=== PATIENT | female | born 1955 | race Caucasian/White ===

== ENCOUNTER 2023-02-02 09:00 | Outpatient (OUT) | payer MEDICARE, OTHER, SELFPAY ==
--- NOTE | 2023-02-02 09:32 | MM_ITS ---
Patient: YONATHAN TSAI Exam Date: 02/02/2023 : 1955 Gender:F Ordering : LUCAS WASHINGTON [employer] Admission #: [id number] Family : Order #: [id number] CLICK HERE TO VIEW EXAM RADIOLOGY REPORT PROCEDURE: MM TOMOSYNTHESIS SCREENING BI COMPARISON: MG MAMM SCREEN [facility] W CAD, 11/19/2013. MG MAMM SCREEN [facility] CAD, 02/04/2015. INDICATIONS: Screening mammogram Z12.31 Calculator Name NCI Breast Cancer Risk Assessment Tool 5 Year Breast Cancer Risk 1.20% Lifetime Breast Cancer Risk 3.90% Personal Breast Cancer No Personal Ovarian Cancer No Treatments None Family Cancers Grandfather-paternal with pancreatic cancer at age 65. LOCATION: [facility] BREAST COMPOSITION: Scattered areas fibroglandular density. FINDINGS: DIAGNOSTIC CATEGORY 1--NEGATIVE. NO CHANGE FROM COMPARISON ASSESSMENT. Scattered benign-appearing lymph nodes are present. RIGHT BREAST: No significant suspicious finding. LEFT BREAST: No significant suspicious finding. RECOMMENDATIONS: ROUTINE MAMMOGRAM AND CLINICAL EVALUATION IN 12 MONTHS. PLEASE NOTE: A NORMAL MAMMOGRAM DOES NOT EXCLUDE THE POSSIBILITY OF BREAST CANCER. A CLINICALLY SUSPICIOUS PALPABLE LUMP SHOULD BE BIOPSIED. Dictated by: Santosh Hernandez MD on 02/03/2023 at 07:13 Approved by: Santosh Hernandez MD on 02/03/2023 at 07:18
== END 2023-02-02 09:01 ==
PROVIDERS: PCP Nurse Practitioner Family; Visit Provider Nurse Practitioner Family
DX: Z12.31 Encounter for screening mammogram for malignant neoplasm of breast (principal); Z80.0 Family history of malignant neoplasm of digestive organs
CPT/HCPCS: 77063; 77067

== ENCOUNTER 2023-08-10 08:10 | Outpatient (OUT) | payer MEDICARE, OTHER, SELFPAY ==
[2023-08-10 08:40] LABS: Basophils Absolute Auto 0.1 10^3/uL (0.0-0.1); Basophils Percent Auto 0.7 % (0.2-2.0); Eosinophils Absolute Auto 0.3 10^3/uL (0.0-0.7); Hematocrit 44.2 % (36.0-48.0); Hemoglobin 14.8 g/dL (12.0-16.0); Immature Granulocytes Abs Auto 0.02 10^3/uL (0.00-0.03); Immature Granulocytes Pct Auto 0.3 % (0.0-0.5); Lymphocytes Absolute Auto 3.3 10^3/uL (1.2-3.8); Lymphocytes Percent Auto 43.1 % (20.5-60.0); Mean Corpuscular HGB Conc 33.5 g/dL (29.9-35.2); Mean Corpuscular Hemoglobin 28.8 pg (26.7-34.0); Mean Corpuscular Volume 86.2 fL (81.0-99.0); Monocytes Absolute Auto 0.6 10^3/uL (0.3-0.8); Monocytes Percent Auto 8.5 % (1.7-12.0); Neutrophils Absolute Auto 3.3 10^3/uL (1.4-6.5); Neutrophils Percent Auto 43.4 % (43.0-75.0); Platelet Count 427 10^3/uL (150-450); Red Blood Count 5.13 10^6/uL (4.20-5.40); Red Cell Distribution Width 13.2 % (11.0-15.0); White Blood Count 7.6 10^3/uL (4.0-11.0)
[2023-08-10 08:44] LABS: Estimated Average Glucose 117 mg/dL; Glycohemoglobin A1C 5.7 % (4.5-6.2)
[2023-08-10 09:01] LABS: Alanine Aminotransferase 33 U/L (14-59); Albumin Level 3.6 g/dL (3.4-5.0); Alkaline Phosphatase 125 U/L (46-116); Anion Gap 10.8; Aspartate Amino Transferase 20 U/L (15-37); BUN Creatinine Ratio 17.8; Bilirubin Total 0.5 mg/dL (0.2-1.0); Calcium 9.1 mg/dL (8.5-10.1); Carbon Dioxide 30.7 mmol/L (21.0-32.0); Chloride 102 mmol/L (98-107); Chol HDL Ratio 5.2; Cholesterol 267 mg/dL (<=200); Estimated GFR (African America >60 (>=60); Estimated GFR (Non-African Ame >60 (>=60); Free T3 2.61 pg/mL (2.18-3.98); Globulin 3.6 g/dL; Glucose 104 mg/dL (74-106); HDL Cholesterol 51 mg/dL (40-60); Potassium 3.5 mmol/L (3.5-5.1); Sodium 140 mmol/L (136-145); Thyroid Stimulating Hormone 4.435 uIU/mL (0.358-3.740); Total Protein 7.2 g/dL (6.4-8.2); Triglycerides 125 mg/dL (<=150)
[2023-08-11 09:07] LABS: Insulin 13.7 uIU/mL (2.6-24.9)
== END 2023-08-10 08:11 | disposition home or self-care (01) ==
LOC: LAB 08:10
PROVIDERS: PCP Nurse Practitioner Family; Visit Provider Nurse Practitioner Family
DX: E78.5 Hyperlipidemia, unspecified (principal); I10 Essential (primary) hypertension; R73.09 Other abnormal glucose; D64.9 Anemia, unspecified; E55.9 Vitamin D deficiency, unspecified
CPT/HCPCS: 36415; 80053; 80061; 82306; 83036; 83525; 83540; 84436; 84443; 84481; 85025

== ENCOUNTER 2023-12-20 08:15 | Outpatient (OUT) | payer MEDICARE, OTHER, SELFPAY ==
--- OUTSIDE RECORDS SUMMARY | 2023-12-20 08:26 | XMS_ITS | CCD ---
Author Organization [facility] Care Team Providers Care Supervisor [employer] Name Role Phone LUCAS WASHINGTON Admitting Unavailable LUCAS WASHINGTON Attending Unavailable LUCAS WASHINGTON Primary Care Unavailable LUCAS WASHINGTON Consulting Unavailable Results Test Name Value Interpretation Reference Range Facil ity INSULINon 08-13-2022 Insulin 15.3 uIU/mL Normal 2.6-24.9 [facility] Comment on above: Performed By: #### I NSULIN #### [facility] [address] [place] [address] Dr. Marilyn Barlow CBC AUTO DIFFon 08-12-2022 BASO # 0.0 103/ul Normal 0.0-0.1 [facility] Comment on above: Performed By: #### C BC #### [facility] [address] [place] [address] Dr. Marilyn Barlow Basophils/100 WBC (Bld) 0.7 % Normal 0.2-2.0 [facility] Comment on above: Performed By: #### C BC #### [facility] [address] [place] [address] Dr. Marilyn Barlow EO # 0.4 103/ul Normal 0.0-0.7 [facility] Comment on above: Performed By: #### C BC #### [facility] [address] [place] [address] Dr. Marilyn Barlow Eosinophils/100 WBC (Bld) 6.5 % Normal 0.9-7.0 [facility] Comment on above: Performed By: #### C BC #### [facility] [address] [place] [address] Dr. Marilyn Barlow Erythrocyte distribution width (RBC) [Ratio] 13.2 % Normal 11.0-15.0 [facility] Comment on above: Performed By: #### C BC #### [facility] [address] [place] [address] Dr. Marilyn Barlow Hematocrit (Bld) [Volume fraction] 43.3 % Normal 36.0-48.0 [facility] Comment on above: Performed By: #### C BC #### [facility] [address] [place] [address] Dr. Marilyn Barlow Hemoglobin (Bld) [Mass/Vol] 15.3 g/dL Normal 12.0-16.0 [facility] Comment on above: Performed By: #### C BC #### [facility] [address] [place] [address] Dr. Marilyn Barlow IG # 0.01 10e3/ul Normal 0.00-0.03 [facility] Comment on above: Performed By: #### C BC #### [facility] [address] [place] [address] Dr. Marilyn Barlow IG % 0.2 % Normal 0.0-0.5 [facility] Comment on above: Performed By: #### C BC #### [facility] [address] [place] [address] Dr. Marilyn Barlow LYMPH # 2.9 103/ul Normal 1.2-3.8 [facility] Comment on above: Performed By: #### C BC #### [facility] [address] [place] [address] Dr. Marilyn Barlow Lymphocytes/100 WBC (Bld) 51.4 % Normal 20.5-60.0 [facility] Comment on above: Performed By: #### C BC #### [facility] [address] [place] [address] Dr. Marilyn Barlow MANUAL DIFF REQ NO Normal [facility] Comment on above: Performed By: #### C BC #### [facility] [address] [place] [address] Dr. Marilyn Barlow MCH (RBC) [Entitic mass] 29.1 pg Normal 26.7-34.0 [facility] Comment on above: Performed By: #### C BC #### [facility] [address] [address] [address] Marilyn Barlow MCHC (RBC) [Mass/Vol] 35.3 g/dL Critically high 29.9-35.2 [facility] Comment on above: Performed By: #### C BC #### [facility] [address] [address] [address] Marilyn Barlow MCV (RBC) [Entitic vol] 82.3 fL Normal 81.0-99.0 [facility] Comment on above: Performed By: #### C BC #### [facility] [address] [address] [address] Marilyn Barlow MONO # 0.6 103/ul Normal 0.3-0.8 [facility] Comment on above: Performed By: #### C BC #### [facility] [address] [place] [address] Dr. Marilyn Barlow Monocytes/100 WBC (Bld) 9.8 % Normal 1.7-12.0 [facility] Comment on above: Performed By: #### C BC #### [facility] [address] [address] [address] Marilyn Barlow NEUT # 1.8 103/ul Normal 1.4-6.5 [facility] Comment on above: Performed By: #### C BC #### [facility] [address] [place] [address] Dr. Marilyn Barlow Neutrophils/100 WBC (Bld) 31.4 % Critically low 43.0-75.0 [facility] Comment on above: Performed By: #### C BC #### [facility] [address] [place] [address] Dr. Marilyn Barlow Platelet mean volume (Bld) [Entitic vol] 8.7 fL Critically low 9.5-13.5 [facility] Comment on above: Performed By: #### C BC #### [facility] [address] [place] [address] Dr. Marilyn Barlow PLT 383 103/ul Normal 150-450 [facility] Comment on above: Performed By: #### C BC #### [facility] [address] [place] [address] Dr. Marilyn Barlow RBC 5.26 106/ul Normal 4.20-5.40 [facility] Comment on above: Performed By: #### C BC #### [facility] [address] [address] [address] Marilyn Barlow WBC 5.7 103/ul Normal 4.0-11.0 [facility] Comment on above: Performed By: #### C BC #### [facility] [address] [place] [address] Dr. Marilyn Barlow FREE THYROXINE INDEX T7on FTI 3.47 Normal 1.30-4.50 [facility] Comment on above: Performed By: #### C MP, T7, LIPID, TSH #### [facility] [address] [place] [address] Dr. Marilyn Barlow T3U 34.0 % Normal 30.0-39.0 [facility] Comment on above: Performed By: #### C MP, T7, LIPID, TSH #### [facility] [address] [place] [address] Dr. Marilyn Barlow T4 [Mass/Vol] 10.20 ug/dL Normal 4.80-13.90 [facility] Comment on above: Performed By: #### C MP, T7, LIPID, TSH #### [facility] [address] [place] [address] Dr. Marilyn Barlow GLYCOHEMOGLOBIN A1Con 2021 ADA RECOMMENDATION SEE BELOW Normal [facility] Comment on above: Result Comment: ADA RECOMMENDED LIMIT 4.0 - 6.0 ADA THERAPEUTIC TARGET < 7.0 ACTION SUGGESTED > 7.0 Performed By: #### A 1C #### [facility] [address] [place] [address] Dr. Marilyn Barlow Glucose [Mass/Vol] 111 mg/dL Normal [facility] Comment on above: Performed By: #### A 1C #### [facility] [address] [place] [address] Dr. Marilyn Barlow HbA1c (Bld) [Mass fraction] 5.5 % Normal 4.5-6.2 [facility] Comment on above: Performed By: #### A 1C #### [facility] [address] [place] [address] Dr. Marilyn Barlow IRONon 08-12-2022 Iron [Mass/Vol] 86.0 ug/dL Normal 50.0-170.0 [facility] Comment on above: Performed By: #### I DIYA #### [facility] [address] [place] [address] Dr. Marilyn Barlow LIPID PROFILEon 08-12-2022 CHOL-HDL RATIO NORM SEE BELOW Normal [facility] Comment on above: Result Comment: 3.3 - 4.4 LOW RISK 4.4 - 7.1 AVERAGE RISK 7.1 - 11.0 MODERATE RISK >11.0 HIGH RISK Performed By: #### C MP, T7, LIPID, TSH #### [facility] [address] [place] [address] Dr. Marilyn Barlow Cholesterol [Mass/Vol] 200 mg/dL Normal <=200 [facility] Comment on above: Performed By: #### C MP, T7, LIPID, TSH #### [facility] [address] [address] [address] Marilyn Barlow Cholesterol in HDL [Mass/Vol] 34 mg/dL Critically low 40-60 [facility] Comment on above: Performed By: #### C MP, T7, LIPID, TSH #### [facility] [address] [address] [address] Marilyn Barlow Cholesterol in LDL [Mass/Vol] 150.4 mg/dL Normal [facility] Comment on above: Performed By: #### C MP, T7, LIPID, TSH #### [facility] [address] [address] [address] Marilyn Barlow Cholesterol.total/Cho lesterol in HDL [Mass ratio] 5.9 {ratio} Normal [facility] Comment on above: Performed By: #### C MP, T7, LIPID, TSH #### [facility] [address] [address] [address] Marilyn Barlow HDL NORMAL > or = 60 mg/dl - LOW CARDIOVASCULAR RISK <40 mg/dl - HIGH CARDIOVASCULAR RISK Normal [facility] Comment on above: Performed By: #### C MP, T7, LIPID, TSH #### [facility] [address] [address] [address] Marilyn Barlow LDL CALC NORMAL SEE BELOW Normal [facility] Comment on above: Result Comment: <100 mg/dl OPTIMAL 100 - 129 mg/dl NEAR OR ABOVE OPTIMAL 130 - 159 mg/dl BORDERLINE HIGH 160 - 189 mg/dl HIGH >190 mg/dl VERY HIGH Performed By: #### C MP, T7, LIPID, TSH #### [facility] [address] [address] [address] Marilyn Barlow Triglyceride [Mass/Vol] 78 mg/dL Normal <=150 [facility] Comment on above: Performed By: #### C MP, T7, LIPID, TSH #### [facility] [address] [address] [address] Marilyn Barlow VLDL CALC 15.6 mg/dL Normal [facility] Comment on above: Performed By: #### C MP, T7, LIPID, TSH #### [facility] [address] [address] [address] Marilyn Barlow PROF 14(COMP METB)on 022 Albumin [Mass/Vol] 3.8 g/dL Normal 3.4-5.0 [facility] Comment on above: Performed By: #### C MP, T7, LIPID, TSH #### [facility] [address] [address] [address] Marilyn Barlow Albumin/Globulin [Mass ratio] 1.0 {ratio} Normal [facility] Comment on above: Performed By: #### C MP, T7, LIPID, TSH #### [facility] [address] [address] [address] Marilyn Barlow ALP [Catalytic activity/Vol] 98 U/L Normal 46-116 [facility] Comment on above: Performed By: #### C MP, T7, LIPID, TSH #### [facility] [address] [address] [address] Marilyn Barlow ALT [Catalytic activity/Vol] 23 U/L Normal 14-59 [facility] Comment on above: Performed By: #### C MP, T7, LIPID, TSH #### [facility] [address] [address] [address] Marilyn Barlow Anion gap [Moles/Vol] 12.0 mmol/L Normal [facility] Comment on above: Performed By: #### C MP, T7, LIPID, TSH #### [facility] [address] [address] [address] Marilyn Barlow AST [Catalytic activity/Vol] 28 U/L Normal 15-37 [facility] Comment on above: Performed By: #### C MP, T7, LIPID, TSH #### [facility] [address] [address] [address] Marilyn Barlow Bilirubin [Mass/Vol] 0.6 mg/dL Normal 0.2-1.0 [facility] Comment on above: Performed By: #### C MP, T7, LIPID, TSH #### [facility] [address] [place] [address] Dr. Marilyn Barlow Calcium [Mass/Vol] 9.1 mg/dL Normal 8.5-10.1 [facility] Comment on above: Performed By: #### C MP, T7, LIPID, TSH #### [facility] [address] [place] [address] Dr. Marilyn Barlow Chloride [Moles/Vol] 97 mmol/L Critically low 98-107 [facility] Comment on above: Performed By: #### C MP, T7, LIPID, TSH #### [facility] [address] [place] [address] Dr. Marilyn Barlow CO2 [Moles/Vol] 30.3 mmol/L Normal 21.0-32.0 [facility] Comment on above: Performed By: #### C MP, T7, LIPID, TSH #### [facility] [address] [place] [address] Dr. Marilyn Barlow Creatinine [Mass/Vol] 0.90 mg/dL Normal 0.55-1.02 [facility] Comment on above: Performed By: #### C MP, T7, LIPID, TSH #### [facility] [address] [address] [address] Marilyn Barlow EGFR-AF GREENLANDIC >60 Normal >=60 [facility] Comment on above: Performed By: #### C MP, T7, LIPID, TSH #### [facility] [address] [address] [address] Marilyn Barlow EGFR-NON AF GREENLANDIC >60 Normal >=60 [facility] Comment on above: Performed By: #### C MP, T7, LIPID, TSH #### [facility] [address] [address] [address] Marilyn Barlow Globulin (S) [Mass/Vol] 3.8 g/dL Normal [facility] Comment on above: Performed By: #### C MP, T7, LIPID, TSH #### [facility] [address] [place] [address] Dr. Marilyn Barlow Glucose [Mass/Vol] 108 mg/dL Critically high 74-106 [facility] Comment on above: Performed By: #### C MP, T7, LIPID, TSH #### [facility] [address] [address] [address] Marilyn Barlow Potassium [Moles/Vol] 3.3 mmol/L Critically low 3.5-5.1 [facility] Comment on above: Performed By: #### C MP, T7, LIPID, TSH #### [facility] [address] [address] [address] Marilyn Barlow Protein [Mass/Vol] 7.6 g/dL Normal 6.4-8.2 [facility] Comment on above: Performed By: #### C MP, T7, LIPID, TSH #### [facility] [address] [address] [address] Marilyn Barlow Sodium [Moles/Vol] 136 mmol/L Normal 136-145 [facility] Comment on above: Performed By: #### C MP, T7, LIPID, TSH #### [facility] [address] [address] [address] Marilyn Barlow Urea nitrogen [Mass/Vol] 15.0 mg/dL Normal 7.0-18.0 [facility] Comment on above: Performed By: #### C MP, T7, LIPID, TSH #### [facility] [address] [address] [address] Marilyn Barlow Urea nitrogen/Creatinine [Mass ratio] 16.7 mg/mg Normal [facility] Comment on above: Performed By: #### C MP, T7, LIPID, TSH #### [facility] [id number] Marilyn Barlow TSHon 08-12-2022 TSH 2.313 uIU/mL Normal 0.358-3.740 [facility] Comment on above: Performed By: #### C MP, T7, LIPID, TSH #### [facility] [address] [address] [address] Marilyn Barlow Encounters Encounter Date Encounter Type Care Provider Facility Start: 08-12-2022 End: 08-13-2022 [facility] Facility: Payers Date Payer Category Payer Medicare [id number] 1960 Unknown [id number] 1955 Unknown [id number] Summary Purpose Family History No Family History Records Found Advance Directives No Advanced Directives Records Found Additional Source Comments INFORMATION SOURCE (unrecogn ized section and content) DATE CREATED AUTHOR 08/13/2022 [facility] FOR RECORDS PERTAINING TO PATIENTS WHO ARE OR HAVE BEEN ENROLLED IN A CHEMICAL DEPENDENCY/SUBSTANCEABUSE PROGRAM, SOME INFORMATION MAY BE OMITTED. This clinical summary was aggregated from multiple sources. Caution should be exercised in using it in the provision of clinical care. This summary normalizes information from multiple sources, and as a consequence, information in this document may materially change the coding, format and clinical context of patient data. In addition, data may be omitted in some cases. CLINICAL DECISIONS SHOULD BE BASED ON THE PRIMARY CLINICAL RECORDS. [facility]. provides no warranty or guarantee of the accuracy or completeness of information in this document.
[2023-12-20 09:38] LABS: Alanine Aminotransferase 27 U/L (14-59); Albumin Globulin Ratio 1.1; Albumin Level 3.7 g/dL (3.4-5.0); Alkaline Phosphatase 135 U/L (46-116); Anion Gap 10.7; Aspartate Amino Transferase 19 U/L (15-37); Bilirubin Total 0.5 mg/dL (0.2-1.0); Calcium 9.1 mg/dL (8.5-10.1); Carbon Dioxide 29.7 mmol/L (21.0-32.0); Chloride 102 mmol/L (98-107); Chol HDL Ratio 6.3; Cholesterol 282 mg/dL (<=200); Estimated GFR (African America >60 (>=60); Estimated GFR (Non-African Ame >60 (>=60); Globulin 3.5 g/dL; Glucose 94 mg/dL (74-106); HDL Cholesterol 45 mg/dL (40-60); Potassium 3.4 mmol/L (3.5-5.1); Sodium 139 mmol/L (136-145); Total Protein 7.2 g/dL (6.4-8.2); Triglycerides 119 mg/dL (<=150); VLDL CHOLESTEROL 23.8 mg/dL
[2023-12-20 10:18] LABS: BUN Creatinine Ratio 21.3
== END 2023-12-20 08:16 | disposition home or self-care (01) ==
LOC: LAB 08:15
PROVIDERS: PCP Nurse Practitioner Family; Visit Provider Nurse Practitioner Family
DX: R79.9 Abnormal finding of blood chemistry, unspecified (principal); E78.5 Hyperlipidemia, unspecified
CPT/HCPCS: 36415; 80053; 80061

== ENCOUNTER 2024-02-05 09:52 | Outpatient (OUT) | payer MEDICARE, OTHER, SELFPAY ==
--- NOTE | 2024-02-05 10:00 | MM_ITS ---
Patient Name: YONATHAN TSAI MR#: [id number] : 1955 Exam Date: 02/05/2024 Ordering Doctor: LUCAS WASHINGTON CNP RADIOLOGY REPORT PROCEDURE: MM TOMOSYNTHESIS SCREENING BI COMPARISON: MM TOMOSYNTHESIS SCREENING BI, 02/02/2023. MG MAMM SCREEN [place] W CAD, 02/04/2015. INDICATIONS: Screen for malignant Neoplasms Calculator Name NCI Breast Cancer Risk Assessment Tool 5 Year Breast Cancer Risk 1.20% Lifetime Breast Cancer Risk 3.70% Personal Breast Cancer No Personal Ovarian Cancer No Treatments None Family Cancers Grandfather-paternal with pancreatic cancer at age 65. LOCATION: [facility] BREAST COMPOSITION: There are scattered areas of fibroglandular density. FINDINGS: DIAGNOSTIC CATEGORY 1--NEGATIVE. NO CHANGE FROM COMPARISON ASSESSMENT. Scattered benign-appearing lymph nodes are present. Scattered benign-appearing calcifications are present. RIGHT BREAST: No significant suspicious finding. LEFT BREAST: No significant suspicious finding. RECOMMENDATIONS: ROUTINE MAMMOGRAM AND CLINICAL EVALUATION IN 12 MONTHS. PLEASE NOTE: A NORMAL MAMMOGRAM DOES NOT EXCLUDE THE POSSIBILITY OF BREAST CANCER. A CLINICALLY SUSPICIOUS PALPABLE LUMP SHOULD BE BIOPSIED. Dictated by: Santosh Hernandez MD on 02/05/2024 at 11:37 Approved by: Santosh Hernandez MD on 02/05/2024 at 11:38
--- OUTSIDE RECORDS SUMMARY | 2024-02-05 10:09 | XMS_ITS | CCD ---
Author Organization [facility] Inform ion Partnership [facility] Care Team Providers Care Heel Finisher Name Role Phone LUCAS WASHINGTON Admitting Unavailable LUCAS WASHINGTON Attending Unavailable LUCAS WASHINGTON Primary Care Unavailable LUCAS WASHINGTON Consulting Unavailable Results Test Name Value Interpretation Reference Range Facil ity INSULINon 08-13-2022 Insulin 15.3 uIU/mL Normal 2.6-24.9 [facility] Comment on above: Performed By: #### I NSULIN #### [facility] [address] [place] [address] Dr. Marilyn Barlow CBC AUTO DIFFon 08-12-2022 BASO # 0.0 103/ul Normal 0.0-0.1 [facility] Comment on above: Performed By: #### C BC #### [facility] [address] [place] [address] Dr. Marilyn Barlow Basophils/100 WBC (Bld) 0.7 % Normal 0.2-2.0 [facility] Comment on above: Performed By: #### C BC #### [facility] [address] [place] [address] Dr. Marilyn Barlow EO # 0.4 103/ul Normal 0.0-0.7 [facility] Comment on above: Performed By: #### C BC #### [facility] [address] [place] [address] Dr. Marilyn Barlow Eosinophils/100 WBC (Bld) 6.5 % Normal 0.9-7.0 [facility] Comment on above: Performed By: #### C BC #### [facility] [address] [place] [address] Dr. Marilyn Barlow Erythrocyte distribution width (RBC) [Ratio] 13.2 % Normal 11.0-15.0 [facility] Comment on above: Performed By: #### C BC #### [facility] [address] [place] [address] Dr. Marilyn Barlow Hematocrit (Bld) [Volume fraction] 43.3 % Normal 36.0-48.0 [facility] Comment on above: Performed By: #### C BC #### [facility] [address] [place] [address] Dr. Marilyn Barlow Hemoglobin (Bld) [Mass/Vol] 15.3 g/dL Normal 12.0-16.0 [facility] Comment on above: Performed By: #### C BC #### [facility] [address] [place] [address] Dr. Marilyn Barlow IG # 0.01 10e3/ul Normal 0.00-0.03 [facility] Comment on above: Performed By: #### C BC #### [facility] [address] [place] [address] Dr. Marilyn Barlow IG % 0.2 % Normal 0.0-0.5 [facility] Comment on above: Performed By: #### C BC #### [facility] [address] [place] [address] Dr. Marilyn Barlow LYMPH # 2.9 103/ul Normal 1.2-3.8 [facility] Comment on above: Performed By: #### C BC #### [facility] [address] [place] [address] Dr. Marilyn Barlow Lymphocytes/100 WBC (Bld) 51.4 % Normal 20.5-60.0 [facility] Comment on above: Performed By: #### C BC #### [facility] [address] [place] [address] Dr. Marilyn Barlow MANUAL DIFF REQ NO Normal [facility] Comment on above: Performed By: #### C BC #### [facility] [address] [place] [address] Dr. Marilyn Barlow MCH (RBC) [Entitic mass] 29.1 pg Normal 26.7-34.0 [facility] Comment on above: Performed By: #### C BC #### [facility] [address] [address] [address] Marilyn Barlow MCHC (RBC) [Mass/Vol] 35.3 g/dL Critically high 29.9-35.2 [facility] Comment on above: Performed By: #### C BC #### [facility] [address] [address] [address] Marilyn Barlow MCV (RBC) [Entitic vol] 82.3 fL Normal 81.0-99.0 [facility] Comment on above: Performed By: #### C BC #### [facility] [address] [address] [address] Marilyn Barlow MONO # 0.6 103/ul Normal 0.3-0.8 [facility] Comment on above: Performed By: #### C BC #### [facility] [address] [address] [address] Marilyn Barlow Monocytes/100 WBC (Bld) 9.8 % Normal 1.7-12.0 [facility] Comment on above: Performed By: #### C BC #### [facility] [address] [address] [address] Marilyn Barlow NEUT # 1.8 103/ul Normal 1.4-6.5 [facility] Comment on above: Performed By: #### C BC #### [facility] [address] [address] [address] Marilyn Barlow Neutrophils/100 WBC (Bld) 31.4 % Critically low 43.0-75.0 [facility] Comment on above: Performed By: #### C BC #### [facility] [address] [address] [address] Marilyn Barlow Platelet mean volume (Bld) [Entitic vol] 8.7 fL Critically low 9.5-13.5 [facility] Comment on above: Performed By: #### C BC #### [facility] [address] [address] [address] Marilyn Barlow PLT 383 103/ul Normal 150-450 [facility] Comment on above: Performed By: #### C BC #### [facility] [address] [address] [address] Marilyn Barlow RBC 5.26 106/ul Normal 4.20-5.40 [facility] Comment on above: Performed By: #### C BC #### [facility] [address] [address] [address] Marilyn Barlow WBC 5.7 103/ul Normal 4.0-11.0 [facility] Comment on above: Performed By: #### C BC #### [facility] [address] [place] [address] Dr. Marilyn Barlow FREE THYROXINE INDEX T7on FTI 3.47 Normal 1.30-4.50 [facility] Comment on above: Performed By: #### C MP, T7, LIPID, TSH #### [facility] [address] [place] [address] Dr. Marilyn Barlow T3U 34.0 % Normal 30.0-39.0 [facility] Comment on above: Performed By: #### C MP, T7, LIPID, TSH #### [facility] [address] [place] [address] Dr. Marilyn Barlow T4 [Mass/Vol] 10.20 ug/dL Normal 4.80-13.90 [facility] Comment on above: Performed By: #### C MP, T7, LIPID, TSH #### [facility] [address] [place] [address] Dr. Marilyn Barlow GLYCOHEMOGLOBIN A1Con 2021 ADA RECOMMENDATION SEE BELOW Normal [facility] Comment on above: Result Comment: ADA RECOMMENDED LIMIT 4.0 - 6.0 ADA THERAPEUTIC TARGET < 7.0 ACTION SUGGESTED > 7.0 Performed By: #### A 1C #### [facility] [address] [place] [address] Dr. Marilyn Barlow Glucose [Mass/Vol] 111 mg/dL Normal [facility] Comment on above: Performed By: #### A 1C #### [facility] [address] [place] [address] Dr. Marilyn Barlow HbA1c (Bld) [Mass fraction] 5.5 % Normal 4.5-6.2 [facility] Comment on above: Performed By: #### A 1C #### [facility] [address] [place] [address] Dr. Marilyn Barlow IRONon 08-12-2022 Iron [Mass/Vol] 86.0 ug/dL Normal 50.0-170.0 [facility] Comment on above: Performed By: #### I DIYA #### [facility] [address] [place] [address] Dr. Marilyn Barlow LIPID PROFILEon 08-12-2022 CHOL-HDL RATIO NORM SEE BELOW Normal [facility] Comment on above: Result Comment: 3.3 - 4.4 LOW RISK 4.4 - 7.1 AVERAGE RISK 7.1 - 11.0 MODERATE RISK >11.0 HIGH RISK Performed By: #### C MP, T7, LIPID, TSH #### [facility] [address] [place] [address] Dr. Marilyn Barlow Cholesterol [Mass/Vol] 200 mg/dL Normal <=200 [facility] Comment on above: Performed By: #### C MP, T7, LIPID, TSH #### [facility] [address] [place] [address] Dr. Marilyn Barlow Cholesterol in HDL [Mass/Vol] 34 mg/dL Critically low 40-60 [facility] Comment on above: Performed By: #### C MP, T7, LIPID, TSH #### [facility] [address] [place] [address] Dr. Marilyn Barlow Cholesterol in LDL [Mass/Vol] 150.4 mg/dL Normal [facility] Comment on above: Performed By: #### C MP, T7, LIPID, TSH #### [facility] [address] [place] [address] Dr. Marilyn Barlow Cholesterol.total/Cho lesterol in HDL [Mass ratio] 5.9 {ratio} Normal [facility] Comment on above: Performed By: #### C MP, T7, LIPID, TSH #### [facility] [address] [place] [address] Dr. Marilyn Barlow HDL NORMAL > or = 60 mg/dl - LOW CARDIOVASCULAR RISK <40 mg/dl - HIGH CARDIOVASCULAR RISK Normal [facility] Comment on above: Performed By: #### C MP, T7, LIPID, TSH #### [facility] [address] [address] [address] Marilyn Barlow LDL CALC NORMAL SEE BELOW Normal [facility] Comment on above: Result Comment: <100 mg/dl OPTIMAL 100 - 129 mg/dl NEAR OR ABOVE OPTIMAL 130 - 159 mg/dl BORDERLINE HIGH 160 - 189 mg/dl HIGH >190 mg/dl VERY HIGH Performed By: #### C MP, T7, LIPID, TSH #### [facility] [address] [address] [address] Marilyn Barlow Triglyceride [Mass/Vol] 78 mg/dL Normal <=150 [facility] Comment on above: Performed By: #### C MP, T7, LIPID, TSH #### [facility] [address] [address] [address] Marilyn Barlow VLDL CALC 15.6 mg/dL Normal [facility] Comment on above: Performed By: #### C MP, T7, LIPID, TSH #### [facility] [address] [address] [address] Marilyn Barlow PROF 14(COMP METB)on 022 Albumin [Mass/Vol] 3.8 g/dL Normal 3.4-5.0 [facility] Comment on above: Performed By: #### C MP, T7, LIPID, TSH #### [facility] [address] [address] [address] Marilyn Barlow Albumin/Globulin [Mass ratio] 1.0 {ratio} Normal [facility] Comment on above: Performed By: #### C MP, T7, LIPID, TSH #### [facility] [address] [address] [address] Marilyn Barlow ALP [Catalytic activity/Vol] 98 U/L Normal 46-116 [facility] Comment on above: Performed By: #### C MP, T7, LIPID, TSH #### [facility] [address] [address] [address] Marilyn Barlow ALT [Catalytic activity/Vol] 23 U/L Normal 14-59 [facility] Comment on above: Performed By: #### C MP, T7, LIPID, TSH #### [facility] [address] [address] [address] Marilyn Barlow Anion gap [Moles/Vol] 12.0 mmol/L Normal Th [facility] Comment on above: Performed By: #### C MP, T7, LIPID, TSH #### [facility] [address] [address] [address] Marilyn Barlow AST [Catalytic activity/Vol] 28 U/L Normal 15-37 [facility] Comment on above: Performed By: #### C MP, T7, LIPID, TSH #### [facility] [address] [place] [address] Dr. Marilyn Barlow Bilirubin [Mass/Vol] 0.6 mg/dL Normal 0.2-1.0 [facility] Comment on above: Performed By: #### C MP, T7, LIPID, TSH #### [facility] [address] [place] [address] Dr. Marilyn Barlow Calcium [Mass/Vol] 9.1 mg/dL Normal 8.5-10.1 [facility] Comment on above: Performed By: #### C MP, T7, LIPID, TSH #### [facility] [address] [place] [address] Dr. Marilyn Barlow Chloride [Moles/Vol] 97 mmol/L Critically low 98-107 [facility] Comment on above: Performed By: #### C MP, T7, LIPID, TSH #### [facility] [address] [place] [address] Dr. Marilyn Barlow CO2 [Moles/Vol] 30.3 mmol/L Normal 21.0-32.0 [facility] Comment on above: Performed By: #### C MP, T7, LIPID, TSH #### [facility] [address] [address] [address] Marilyn Barlow Creatinine [Mass/Vol] 0.90 mg/dL Normal 0.55-1.02 [facility] Comment on above: Performed By: #### C MP, T7, LIPID, TSH #### [facility] [address] [address] [address] Marilyn Barlow EGFR-AF GUATEMALAN >60 Normal >=60 [facility] Comment on above: Performed By: #### C MP, T7, LIPID, TSH #### [facility] [address] [address] [address] Marilyn Barlow EGFR-NON AF GUATEMALAN >60 Normal >=60 [facility] Comment on above: Performed By: #### C MP, T7, LIPID, TSH #### [facility] [address] [address] [address] Marilyn Barlow Globulin (S) [Mass/Vol] 3.8 g/dL Normal [facility] Comment on above: Performed By: #### C MP, T7, LIPID, TSH #### [facility] [address] [place] [address] Dr. Marilyn Barlow Glucose [Mass/Vol] 108 mg/dL Critically high 74-106 [facility] Comment on above: Performed By: #### C MP, T7, LIPID, TSH #### [facility] [address] [address] [address] Marilyn Barlow Potassium [Moles/Vol] 3.3 mmol/L Critically low 3.5-5.1 [facility] Comment on above: Performed By: #### C MP, T7, LIPID, TSH #### [facility] [address] [address] [address] Marilyn Barlow Protein [Mass/Vol] 7.6 g/dL Normal 6.4-8.2 [facility] Comment on above: Performed By: #### C MP, T7, LIPID, TSH #### [facility] [address] [address] [address] Marilyn Barlow Sodium [Moles/Vol] 136 mmol/L Normal 136-145 [facility] Comment on above: Performed By: #### C MP, T7, LIPID, TSH #### [facility] [address] [address] [address] Marilyn Barlow Urea nitrogen [Mass/Vol] 15.0 mg/dL Normal 7.0-18.0 [facility] Comment on above: Performed By: #### C MP, T7, LIPID, TSH #### [facility] [address] [address] [address] Marilyn Barlow Urea nitrogen/Creatinine [Mass ratio] 16.7 mg/mg Normal [facility] Comment on above: Performed By: #### C MP, T7, LIPID, TSH #### [facility] [id number] Marilyn Barlow TSHon 08-12-2022 TSH 2.313 uIU/mL Normal 0.358-3.740 [facility] Comment on above: Performed By: #### C MP, T7, LIPID, TSH #### [facility] [id number] Marilyn Barlow Encounters Encounter Date Encounter Type Care Provider Facility Start: 08-12-2022 End: 08-13-2022 [facility] Facility: Payers Date Payer Category Payer Medicare [id number] 1960 Unknown [id number] 1955 Unknown [id number] Summary Purpose Family History No Family History Records Found Advance Directives No Advanced Directives Records Found Additional Source Comments INFORMATION SOURCE (unrecogn ized section and content) DATE CREATED AUTHOR 08/13/2022 [facility] FOR RECORDS PERTAINING TO PATIENTS WHO [...] BE BASED ON THE PRIMARY CLINICAL RECORDS. [facility] [employer] [facility]. provides no warranty or guarantee of the accuracy or completeness of information in this document.
== END 2024-02-05 09:53 | disposition home or self-care (01) ==
LOC: MAMMO 09:53
PROVIDERS: PCP Nurse Practitioner Family; Visit Provider Nurse Practitioner Family
DX: Z12.31 Encounter for screening mammogram for malignant neoplasm of breast (principal); Z80.0 Family history of malignant neoplasm of digestive organs
CPT/HCPCS: 77063; 77067

== ENCOUNTER 2024-07-31 08:39 | Outpatient (OUT) | payer MEDICARE, OTHER, SELFPAY ==
[2024-07-31 09:37] LABS: Chol HDL Ratio 4.6; Cholesterol 241 mg/dL (<=200); HDL Cholesterol 52 mg/dL (40-60); Triglycerides 69 mg/dL (<=150); VLDL CHOLESTEROL 13.8 mg/dL
== END 2024-07-31 08:40 | disposition home or self-care (01) ==
LOC: LAB 08:39
PROVIDERS: PCP Nurse Practitioner Family; Visit Provider Nurse Practitioner Family
DX: E78.5 Hyperlipidemia, unspecified (principal)
CPT/HCPCS: 36415; 80061

== ENCOUNTER 2024-11-08 08:17 | Outpatient (OUT) | payer MEDICARE, OTHER, SELFPAY ==
--- OUTSIDE RECORDS SUMMARY | 2024-11-08 08:35 | XMS_ITS | CCD ---
Author Organization [facility] Inform ion Partnership [facility] Care Team Providers Care Personal Injury Law Specialist Name Role Phone LUCAS WASHINGTON Admitting Unavailable LUCAS WASHINGTON Attending Unavailable LUCAS WASHINGTON Primary Care Unavailable LUCAS WASHINGTON Consulting Unavailable Results Test Name Value Interpretation Reference Range Facil ity INSULINon 08-13-2022 Insulin 15.3 uIU/mL Normal 2.6-24.9 [facility] Comment on above: Performed By: #### I NSULIN #### [facility] [address] [place] [address] Dr. Marilyn Barlow CBC AUTO DIFFon 08-12-2022 BASO # 0.0 103/ul Normal 0.0-0.1 [facility] Comment on above: Performed By: #### C BC #### [facility] [address] [place] [address] Dr. Marilyn Barlow Basophils/100 WBC (Bld) 0.7 % Normal 0.2-2.0 [facility] Comment on above: Performed By: #### C BC #### [facility] [address] [place] [address] Dr. Marilyn Barlow EO # 0.4 103/ul Normal 0.0-0.7 [facility] Comment on above: Performed By: #### C BC #### [facility] [address] [place] [address] Dr. Marilyn Barlow Eosinophils/100 WBC (Bld) 6.5 % Normal 0.9-7.0 [facility] Comment on above: Performed By: #### C BC #### [facility] [address] [place] [address] Dr. Marilyn Barlow Erythrocyte distribution width (RBC) [Ratio] 13.2 % Normal 11.0-15.0 [facility] Comment on above: Performed By: #### C BC #### [facility] [address] [place] [address] Dr. Marilyn Barlow Hematocrit (Bld) [Volume fraction] 43.3 % Normal 36.0-48.0 [facility] Comment on above: Performed By: #### C BC #### [facility] [address] [place] [address] Dr. Marilyn Barlow Hemoglobin (Bld) [Mass/Vol] 15.3 g/dL Normal 12.0-16.0 [facility] Comment on above: Performed By: #### C BC #### [facility] [address] [place] [address] Dr. Marilyn Barlow IG # 0.01 10e3/ul Normal 0.00-0.03 [facility] Comment on above: Performed By: #### C BC #### [facility] [address] [place] [address] Dr. Marilyn Barlow IG % 0.2 % Normal 0.0-0.5 [facility] Comment on above: Performed By: #### C BC #### [facility] [address] [place] [address] Dr. Marilyn Barlow LYMPH # 2.9 103/ul Normal 1.2-3.8 [facility] Comment on above: Performed By: #### C BC #### [facility] [address] [place] [address] Dr. Marilyn Barlow Lymphocytes/100 WBC (Bld) 51.4 % Normal 20.5-60.0 [facility] Comment on above: Performed By: #### C BC #### [facility] [address] [place] [address] Dr. Marilyn Barlow MANUAL DIFF REQ NO Normal [facility] Comment on above: Performed By: #### C BC #### [facility] [address] [place] [address] Dr. Marilyn Barlow MCH (RBC) [Entitic mass] 29.1 pg Normal 26.7-34.0 [facility] Comment on above: Performed By: #### C BC #### [facility] [address] [address] [address] Marilyn Barlow MCHC (RBC) [Mass/Vol] 35.3 g/dL Critically high 29.9-35.2 [facility] Comment on above: Performed By: #### C BC #### [facility] [address] [address] [address] Marilyn Barlow MCV (RBC) [Entitic vol] 82.3 fL Normal 81.0-99.0 [facility] Comment on above: Performed By: #### C BC #### [facility] [address] [address] [address] Marilyn Barlow MONO # 0.6 103/ul Normal 0.3-0.8 [facility] Comment on above: Performed By: #### C BC #### [facility] [address] [address] [address] Marilyn Barlow Monocytes/100 WBC (Bld) 9.8 % Normal 1.7-12.0 [facility] Comment on above: Performed By: #### C BC #### [facility] [address] [address] [address] Marilyn Barlow NEUT # 1.8 103/ul Normal 1.4-6.5 [facility] Comment on above: Performed By: #### C BC #### [facility] [address] [address] [address] Marilyn Barlow Neutrophils/100 WBC (Bld) 31.4 % Critically low 43.0-75.0 [facility] Comment on above: Performed By: #### C BC #### [facility] [address] [address] [address] Marilyn Barlow Platelet mean volume (Bld) [Entitic vol] 8.7 fL Critically low 9.5-13.5 [facility] Comment on above: Performed By: #### C BC #### [facility] [address] [address] [address] Marilyn Barlow PLT 383 103/ul Normal 150-450 [facility] Comment on above: Performed By: #### C BC #### [facility] [address] [address] [address] Marilyn Barlow RBC 5.26 106/ul Normal 4.20-5.40 [facility] Comment on above: Performed By: #### C BC #### [facility] [address] [address] [address] Marilyn Barlow WBC 5.7 103/ul Normal 4.0-11.0 [facility] Comment on above: Performed By: #### C BC #### [facility] [address] [place] [address] Dr. Marilyn Barlow FREE THYROXINE INDEX T7on FTI 3.47 Normal 1.30-4.50 [facility] Comment on above: Performed By: #### C MP, T7, LIPID, TSH #### [facility] [address] [place] [address] Dr. Marilyn Barlow T3U 34.0 % Normal 30.0-39.0 [facility] Comment on above: Performed By: #### C MP, T7, LIPID, TSH #### [facility] [address] [place] [address] Dr. Marilyn Barlow T4 [Mass/Vol] 10.20 ug/dL Normal 4.80-13.90 [facility] Comment on above: Performed By: #### C MP, T7, LIPID, TSH #### [facility] [address] [place] [address] Dr. Marilyn Barlow GLYCOHEMOGLOBIN A1Con 2021 ADA RECOMMENDATION SEE BELOW Normal [facility] Comment on above: Result Comment: ADA RECOMMENDED LIMIT 4.0 - 6.0 ADA THERAPEUTIC TARGET < 7.0 ACTION SUGGESTED > 7.0 Performed By: #### A 1C #### [facility] [address] [place] [address] Dr. Marilyn Barlow Glucose [Mass/Vol] 111 mg/dL Normal [facility] Comment on above: Performed By: #### A 1C #### [facility] [address] [place] [address] Dr. Marilyn Barlow HbA1c (Bld) [Mass fraction] 5.5 % Normal 4.5-6.2 [facility] Comment on above: Performed By: #### A 1C #### [facility] [address] [place] [address] Dr. Marilyn Barlow IRONon 08-12-2022 Iron [Mass/Vol] 86.0 ug/dL Normal 50.0-170.0 [facility] Comment on above: Performed By: #### I DIYA #### [facility] [address] [place] [address] Dr. Marilyn Barlow LIPID PROFILEon 08-12-2022 CHOL-HDL RATIO NORM SEE BELOW Normal [facility] Comment on above: Result Comment: 3.3 - 4.4 LOW RISK 4.4 - 7.1 AVERAGE RISK 7.1 - 11.0 MODERATE RISK >11.0 HIGH RISK Performed By: #### C MP, T7, LIPID, TSH #### [facility] [address] [place] [address] Dr. Marilyn Barlow Cholesterol [Mass/Vol] 200 mg/dL Normal <=200 [facility] Comment on above: Performed By: #### C MP, T7, LIPID, TSH #### [facility] [address] [place] [address] Dr. Marilyn Barlow Cholesterol in HDL [Mass/Vol] 34 mg/dL Critically low 40-60 [facility] Comment on above: Performed By: #### C MP, T7, LIPID, TSH #### [facility] [address] [place] [address] Dr. Marilyn Barlow Cholesterol in LDL [Mass/Vol] 150.4 mg/dL Normal [facility] Comment on above: Performed By: #### C MP, T7, LIPID, TSH #### [facility] [address] [place] [address] Dr. Marilyn Barlow Cholesterol.total/Cho lesterol in HDL [Mass ratio] 5.9 {ratio} Normal [facility] Comment on above: Performed By: #### C MP, T7, LIPID, TSH #### [facility] [address] [place] [address] Dr. Marilyn Barlow HDL NORMAL > or = 60 mg/dl - LOW CARDIOVASCULAR RISK <40 mg/dl - HIGH CARDIOVASCULAR RISK Normal [facility] Comment on above: Performed By: #### C MP, T7, LIPID, TSH #### [facility] [address] [address] [address] Marilyn Barlow LDL CALC NORMAL SEE BELOW Normal [facility] Comment on above: Result Comment: <100 mg/dl OPTIMAL 100 - 129 mg/dl NEAR OR ABOVE OPTIMAL 130 - 159 mg/dl BORDERLINE HIGH 160 - 189 mg/dl HIGH >190 mg/dl VERY HIGH Performed By: #### C MP, T7, LIPID, TSH #### [facility] [address] [address] [address] Marilyn Barlow Triglyceride [Mass/Vol] 78 mg/dL Normal <=150 [facility] Comment on above: Performed By: #### C MP, T7, LIPID, TSH #### [facility] [address] [address] [address] Marilyn Barlow VLDL CALC 15.6 mg/dL Normal [facility] Comment on above: Performed By: #### C MP, T7, LIPID, TSH #### [facility] [address] [address] [address] Marilyn Barlow PROF 14(COMP METB)on 022 Albumin [Mass/Vol] 3.8 g/dL Normal 3.4-5.0 [facility] Comment on above: Performed By: #### C MP, T7, LIPID, TSH #### [facility] [address] [address] [address] Marilyn Barlow Albumin/Globulin [Mass ratio] 1.0 {ratio} Normal [facility] Comment on above: Performed By: #### C MP, T7, LIPID, TSH #### [facility] [address] [address] [address] Marilyn Barlow ALP [Catalytic activity/Vol] 98 U/L Normal 46-116 [facility] Comment on above: Performed By: #### C MP, T7, LIPID, TSH #### [facility] [address] [address] [address] Marilyn Barlow ALT [Catalytic activity/Vol] 23 U/L Normal 14-59 [facility] Comment on above: Performed By: #### C MP, T7, LIPID, TSH #### [facility] [address] [address] [address] Marilyn Barlow Anion gap [Moles/Vol] 12.0 mmol/L Normal [facility] Comment on above: Performed By: #### C MP, T7, LIPID, TSH #### [facility] [address] [address] [address] Marilyn Barlow AST [Catalytic activity/Vol] 28 U/L Normal 15-37 [facility] Comment on above: Performed By: #### C MP, T7, LIPID, TSH #### [facility] [address] [place] [address] Dr. Marilyn Barlow Bilirubin [Mass/Vol] 0.6 mg/dL Normal 0.2-1.0 [facility] Comment on above: Performed By: #### C MP, T7, LIPID, TSH #### [facility] [address] [place] [address] Dr. Marilyn Barlow Calcium [Mass/Vol] 9.1 mg/dL Normal 8.5-10.1 [facility] Comment on above: Performed By: #### C MP, T7, LIPID, TSH #### [facility] [address] [place] [address] Dr. Marilyn Barlow Chloride [Moles/Vol] 97 mmol/L Critically low 98-107 [facility] Comment on above: Performed By: #### C MP, T7, LIPID, TSH #### [facility] [address] [place] [address] Dr. Marilyn Barlow CO2 [Moles/Vol] 30.3 mmol/L Normal 21.0-32.0 [facility] Comment on above: Performed By: #### C MP, T7, LIPID, TSH #### [facility] [address] [address] [address] Marilyn Barlow Creatinine [Mass/Vol] 0.90 mg/dL Normal 0.55-1.02 [facility] Comment on above: Performed By: #### C MP, T7, LIPID, TSH #### [facility] [address] [address] [address] Marilyn Barlow EGFR-AF SERBIAN >60 Normal >=60 [facility] Comment on above: Performed By: #### C MP, T7, LIPID, TSH #### [facility] [address] [address] [address] Marilyn Barlow EGFR-NON AF SERBIAN >60 Normal >=60 [facility] Comment on above: Performed By: #### C MP, T7, LIPID, TSH #### [facility] [address] [address] [address] Marilyn Barlow Globulin (S) [Mass/Vol] 3.8 g/dL Normal [facility] Comment on above: Performed By: #### C MP, T7, LIPID, TSH #### [facility] [address] [place] [address] Dr. Marilyn Barlow Glucose [Mass/Vol] 108 mg/dL Critically high 74-106 [facility] Comment on above: Performed By: #### C MP, T7, LIPID, TSH #### [facility] [address] [address] [address] Marilyn Barlow Potassium [Moles/Vol] 3.3 mmol/L Critically low 3.5-5.1 [facility] Comment on above: Performed By: #### C MP, T7, LIPID, TSH #### [facility] [address] [address] [address] Marilyn Barlow Protein [Mass/Vol] 7.6 g/dL Normal 6.4-8.2 [facility] Comment on above: Performed By: #### C MP, T7, LIPID, TSH #### [facility] [address] [address] [address] Marilyn Barlow Sodium [Moles/Vol] 136 mmol/L Normal 136-145 [facility] Comment on above: Performed By: #### C MP, T7, LIPID, TSH #### [facility] [address] [address] [address] Marilyn Barlow Urea nitrogen [Mass/Vol] 15.0 mg/dL Normal 7.0-18.0 [facility] Comment on above: Performed By: #### C MP, T7, LIPID, TSH #### [facility] [address] [address] [address] Marilyn Barlow Urea nitrogen/Creatinine [Mass ratio] 16.7 mg/mg Normal [facility] Comment on above: Performed By: #### C MP, T7, LIPID, TSH #### [facility] [address] [id number] Marilyn Barlow TSHon 08-12-2022 TSH 2.313 uIU/mL Normal 0.358-3.740 [facility] Comment on above: Performed By: #### C MP, T7, LIPID, TSH #### [facility] [id number] Marilyn Barlow Encounters Encounter Date Encounter Type Care Provider Facility Start: 08-12-2022 End: 08-13-2022 [facility] Facility: Payers Date Payer Category Payer Medicare [id number] 1960 Unknown [id number] 1955 Unknown [id number] Summary Purpose Family History No Family History Records Found Advance Directives No Advanced Directives Records Found Additional Source Comments INFORMATION SOURCE (unrecogn ized section and content) DATE CREATED AUTHOR 08/13/2022 [facility] FOR RECORDS PERTAINING TO PATIENTS WHO ARE [...] BE BASED ON THE PRIMARY CLINICAL RECORDS. [facility] [employer] [facility]. provides no warranty or guarantee of the accuracy or completeness of information in this document.
[2024-11-08 09:04] LABS: Chol HDL Ratio 3.3; Cholesterol 179 mg/dL (<=200); HDL Cholesterol 55 mg/dL (40-60); LDL Cholesterol Calculated 103.2 mg/dL; Triglycerides 104 mg/dL (<=150); VLDL CHOLESTEROL 20.8 mg/dL
== END 2024-11-08 08:18 | disposition home or self-care (01) ==
LOC: LAB 08:18
PROVIDERS: PCP Nurse Practitioner Family; Visit Provider Nurse Practitioner Family
DX: E78.00 Pure hypercholesterolemia, unspecified (principal)
CPT/HCPCS: 36415; 80061

== ENCOUNTER 2025-02-05 12:47 | Outpatient (OUT) | payer MEDICARE, OTHER, SELFPAY ==
--- NOTE | 2025-02-05 12:53 | MM_ITS ---
Patient Name: YONATHAN TSAI MR#: [id number] : 1955 Exam Date: 02/05/2025 Ordering Doctor: LUCAS WASHINGTON CNP RADIOLOGY REPORT PROCEDURE: MM TOMOSYNTHESIS SCREENING BI COMPARISON: MM TOMOSYNTHESIS SCREENING BI, 02/05/2024. MM TOMOSYNTHESIS SCREENING BI, 02/02/2023. MG MAMM SCREEN [place] W CAD, 02/04/2015. MG MAMM SCREEN [facility] W CAD, 11/19/2013. INDICATIONS: Screening for malignant neoolasm Calculator Name NCI Breast Cancer Risk Assessment Tool 5 Year Breast Cancer Risk 1.30% Lifetime Breast Cancer Risk 3.50% Personal Breast Cancer No Personal Ovarian Cancer No Treatments None Family Cancers Grandfather-paternal with pancreatic cancer at age 65. LOCATION: [facility] BREAST COMPOSITION: There are scattered areas of fibroglandular density. FINDINGS: DIAGNOSTIC CATEGORY 1--NEGATIVE. RIGHT BREAST: No significant suspicious finding. LEFT BREAST: No significant suspicious finding. RECOMMENDATIONS: ROUTINE MAMMOGRAM AND CLINICAL EVALUATION IN 12 MONTHS. PLEASE NOTE: A NORMAL MAMMOGRAM DOES NOT EXCLUDE THE POSSIBILITY OF BREAST CANCER. A CLINICALLY SUSPICIOUS PALPABLE LUMP SHOULD BE BIOPSIED. Dictated by: Alejandro Myers DO on 02/05/2025 at 15:54 Approved by: Alejandro Myers DO on 02/05/2025 at 15:56
== END 2025-02-05 12:48 | disposition home or self-care (01) ==
LOC: MAMMO 12:47
PROVIDERS: PCP Nurse Practitioner Family; Visit Provider Nurse Practitioner Family
DX: Z12.31 Encounter for screening mammogram for malignant neoplasm of breast (principal); Z80.8 Family history of malignant neoplasm of other organs or systems
CPT/HCPCS: 77063; 77067